=== PATIENT | female | born 1945 ===

== ENCOUNTER 2017-08-23 16:10 | Emergency (ER) | payer MEDICARE, BC ==
[~2017-08-23] VITALS: Ht 152.4 cm; Wt 54.1 kg
[2017-08-23 16:46] LABS: BASOPHILS # (AUTO) 0.05 x10^3/uL (0-0.1); BASOPHILS % (AUTO) 1 % (0-1); EOSINOPHILS # (AUTO) 0.18 x10^3/uL (0-0.4); EOSINOPHILS % (AUTO) 2 % (1-7); LYMPHOCYTES # (AUTO) 3.47 x10^3/uL (1-3.4); LYMPHOCYTES % (AUTO) 38 % (22-44); MD NO; MEAN CORPUSCULAR HEMOGLOBIN 29.4 pg (27.0-34.8); MEAN CORPUSCULAR HGB CONC 33.3 g/dL (32.4-35.8); MEAN CORPUSCULAR VOLUME 88.4 fL (80-100); MEAN PLATELET VOLUME 8.4 fL (7.4-10.4); MONOCYTES # (AUTO) 0.57 x10^3/uL (0.2-0.8); MONOCYTES % (AUTO) 6 % (2-9); NEUTROPHILS # (AUTO) 4.79 x10^3/uL (1.8-6.8); NEUTROPHILS % (AUTO) 53 % (42-75); PLATELET COUNT 351 x10^3/uL (130-400); RED BLOOD COUNT 4.41 x10^6/uL (3.82-5.3); RED CELL DISTRIBUTION WIDTH 15.1 % (9.6-15.2)
[2017-08-23 17:00] LABS: ANION GAP 7 mmol/L (5-15); CALCIUM 10.2 mg/dL (8.5-10.1); CHLORIDE 108 mmol/L (98-107)
[2017-08-23 17:01] LABS: CREATININE 0.85 mg/dL (0.55-1.02)
[2017-08-23] MEDS ORDERED: ASPI-650 PO (18:12)
[2017-08-23] MEDS ORDERED: ASPI-515 PO (18:12)
[2017-08-23 18:16] VITALS: BP 174/73
[2017-08-23] MEDS ORDERED: LINA5TAB PO (18:24)
[2017-08-23] MEDS ORDERED: FENO145T30 PO (18:24)
[2017-08-23] MEDS ORDERED: OMEG-133 PO (18:24)
[2017-08-23] MEDS ORDERED: METF10003 PO (18:24)
[2017-08-23] MEDS ORDERED: GLIP10TA13 PO (18:24)
[2017-08-23] MEDS ORDERED: CALCIUM PO (18:24)
[2017-08-23] MEDS ORDERED: MULT-516 PO (18:24)
[2017-08-23] MEDS ORDERED: ASCO500T8 PO (18:24)
[2017-08-23] MEDS ORDERED: GABA-826 PO (18:24)
[2017-08-23] MEDS ORDERED: CHOLESTOFF PO (18:24)
== END 2017-08-23 19:37 | disposition home or self-care (01) ==
LOC: ED 19:31
DX: I70.202 Unspecified atherosclerosis of native arteries of extremities, left leg (principal); I77.89 Other specified disorders of arteries and arterioles; I10 Essential (primary) hypertension; E11.9 Type 2 diabetes mellitus without complications; E78.00 Pure hypercholesterolemia, unspecified
CPT/HCPCS: 36415; 80048; 85025; 93926; 99285